=== PATIENT | female | born 1935 | race Caucasian/White ===

== ENCOUNTER 2016-10-29 12:29 | Emergency (ER) | payer MEDICARE ==
[2016-10-29] MEDS ORDERED: IOPAMIDOL 370 (76%) 100 ML VIAL IV ONE (12:30)
[2016-10-29] MEDS ORDERED: ONDANSETRON 4 MG/2ML 2 ML VIAL ONE (13:24)
[2016-10-29] MEDS ORDERED: MORPHINE SULFATE 2 MG/ML SYRINGE ONE ×2 (13:24→15:34)
[2016-10-29] MEDS ORDERED: SODIUM CHLORIDE 0.9% 500 ML ONE (13:24)
[2016-10-29 13:37] LABS: ABSOLUTE NEUTROPHIL COUNT 5.9 K/mm3 (1.8-7.7); BASO % 0.5 % (0.2-1.0); EOS # 0.1 (0.0-0.5); EOS % 1.6 % (0.9-2.9); HEMATOCRIT 38.9 % (37.0-47.0); HEMOGLOBIN 12.7 gm/l (12.0-16.0); IMM NEUT% 0.5 % (0-1); LYMPH # 1.5 (1.0-4.8); LYMPH % 18.1 % (15-45); MEAN CELL VOLUME 95.3 fl (81.0-99.0); MEAN CORPUSCULAR HEMOGLOBIN 31.1 pg (27.0-31.0); MEAN CORPUSCULAR HGB CONC 32.6 g/dl (33.0-37.0); MEAN PLATELET VOLUME 9.6 fl (7.4-10.4); MONO # 0.6 (0.0-0.8); MONO % 7.3 % (4-12); PLATELET COUNT 223 K/mm3 (130-400); RED CELL DISTRIBUTION WIDTH 12.8 % (11.5-14.5)
[2016-10-29 13:46] LABS: CALCIUM 9.2 mg/dL (8.6-10.3)
[2016-10-29] MEDS ORDERED: KETOROLAC TROMETHAMINE 15 MG/ML VIAL ONE (14:17)
--- NOTE | 2016-10-29 14:26 | CT ---
ABD/PELVIS W/ CON COMPARISON: CT abdomen and pelvis without contrast, T1 2016 HISTORY: Right inguinal hernia pain. Technique: No oral contrast. Intravenous injection 80 mL Isovue 370. Using a [employer] Aquilion [address] scanner, images were obtained from the diaphragm to the floor the pelvis. An automated dose reduction technique was used to minimize patient radiation dose. Dose information: CTDIvol (mGy): 8.70 DLP(mGycm): 394.10 FINDINGS: Lung bases: Subpleural pulmonary fibrosis, greater on the right than the left. Inferior mediastinum and heart: Mitral annular calcification, coronary artery disease, and atherosclerosis of the aorta. Liver: Normal. Gallbladder:Normal. Bile ducts: Normal. Pancreas: Moderate atrophy. Spleen: Normal. Adrenal glands: Normal. Kidneys: Normal. Ureters: Normal Urinary bladder: Moderately distended. Uterus and adnexa: Normal. Blood vessels: Extensive atherosclerosis of the aorta and its branches in the abdomen and the pelvis. Lymph nodes: Normal Stomach: Normal Duodenum: Normal Small intestine: Normal Appendix: Removed. Colon: Normal Abdominal wall and supporting musculature: Right to left common femoral artery shunt.. No internal hernia. Bones: Severe decreased mineralization. Mild old compression fractures of the superior endplate of L3 and the superior endplate of L5. IMPRESSION: 1. There is no CT evidence of internal hernia. There is a right to left common femoral artery shunt. 2. The urinary bladder is moderately distended. 3. Severe atherosclerosis of the aorta and its branches in the abdomen and the pelvis. 4. Incidental findings include appendectomy, osteoporosis with old compression fractures of L3 and L5, moderate atrophy of the pancreas, mitral annular calcification and coronary disease, and subpleural pulmonary fibrosis in both lung bases. The report was sent to the emergency department electronic medical record system, 10/29/2016 at 14:28 5. Osteoporosis with old compression fractures of L3 and L5. #6 moderate atrophy of the pancreas. 7.
== END 2016-10-29 16:10 | disposition home or self-care (01) ==
LOC: ED 12:29
DX: S39.012A Strain of muscle, fascia and tendon of lower back, initial encounter (principal); I10 Essential (primary) hypertension; J43.9 Emphysema, unspecified; Z85.118 Personal history of other malignant neoplasm of bronchus and lung; Z87.891 Personal history of nicotine dependence; Y93.89 Activity, other specified
CPT/HCPCS: 85025; 80048; 74177; 96375 ×2; 96376; 99284 ×2; 96374; 96361 ×2; J2270 ×2; J1885; J2405; J7040; Q9967

== ENCOUNTER 2016-11-13 10:16 | Emergency (ER) | payer MEDICARE ==
[2016-11-13] MEDS ORDERED: IOPAMIDOL 370 (76%) 100 ML VIAL IV ONE (10:17)
--- NOTE | 2016-11-13 11:44 | RAD ---
History: Hemoptysis. Comparison: 08/24/2015. Technique: 2 views Findings: 2 views of the chest were performed demonstrating normal-appearing soft tissue and bony structures though there appears to be a posttraumatic deformity of several right posterior lateral ribs. The appearance is stable from the appearance on prior examination. There is blunting the right costophrenic sulcus with suggested scarring within the right pulmonary base laterally. This appearance is also stable. The heart size is appropriate. There are postsurgical changes within the right hilar region suggesting prior lobar resection. The left lung field is clear. The hilar and mediastinal structures are intact. Impression: 1. Post surgical changes within the right hilum with stable suggested scarring within the peripheral right pulmonary base. 2. A chronic deformity of several right posterior lateral ribs. 3. No active intrathoracic process.
[2016-11-13] MEDS ORDERED: LACTATED RINGERS 1,000 ML ONE (13:04)
[2016-11-13 13:21] LABS: ABSOLUTE NEUTROPHIL COUNT 6.3 K/mm3 (1.8-7.7); BASO # 0.1 K/mm3 (0.0-0.2); BASO % 0.8 % (0.2-1.0); EOS # 0.1 (0.0-0.5); EOS % 1.6 % (0.9-2.9); HEMATOCRIT 36.2 % (37.0-47.0); HEMOGLOBIN 11.7 gm/l (12.0-16.0); IMM NEUT% 0.5 % (0-1); LYMPH # 1.7 (1.0-4.8); LYMPH % 18.8 % (15-45); MEAN CORPUSCULAR HEMOGLOBIN 30.4 pg (27.0-31.0); MEAN CORPUSCULAR HGB CONC 32.3 g/dl (33.0-37.0); MEAN PLATELET VOLUME 9.5 fl (7.4-10.4); MONO # 0.6 (0.0-0.8); MONO % 7.1 % (4-12); NEUT % 71.2 % (43-75); PLATELET COUNT 291 K/mm3 (130-400); RED CELL DISTRIBUTION WIDTH 12.8 % (11.5-14.5)
[2016-11-13 13:48] LABS: ALB/GLOB RATIO 1.2 (>1.0); ALBUMIN 3.6 gm/dL (3.5-5.7); CALCIUM 8.9 mg/dL (8.6-10.3)
--- NOTE | 2016-11-13 14:35 | CT ---
CTA CHEST FOR PE History: Hemoptysis. Comparison: 12/10/2014. Procedure: 1 mm axial images were obtained through the chest following the administration of 80cc's of Isovue-370 intravenous contrast. Stacked reconstructed 3 mm images were then photographed in the axial, coronal and sagittal planes. 3-D reconstructed MIP images were also performed on the scanner workstation. Findings: The visualized thyroid gland appears to be appropriate. No suggested enlarged mediastinal or hilar adenopathy is observed. There is atherosclerotic calcification of the aortic arch and great vessel branches. The aortic caliber is appropriate. No pericardial abnormalities are seen. The visualized esophagus appears to be normal. The pulmonary arterial tree is adequately opacified. There are no filling defects identified within the main, primary or secondary pulmonary arterial branches to suggest the presence of a pulmonary embolus. A small amount of debris is suggested within the dependent portion of the trachea. Biapical pulmonary emphysematous changes are present. Subchondral cyst formation is seen within the periphery of both lungs, right greater than left with some associated airspace consolidation seen within the posterior right upper and right lower lobes. A minimal right pleural effusion is suggested. Scans to the upper abdomen demonstrate evidence of a left renal cyst. The T8 compression deformity is identified which appears stable from its appearance on prior examination. Impression: 1. No current findings of a pulmonary embolus visualized. 2. Fibrosis and subpleural cyst formation within both hemithoraces, right greater than left. These findings have progressed since the previous examination. 3. Airspace consolidation within the posterior right upper and right lower lobes which is nonspecific and may reflect asymmetric atelectasis or possibly infectious consolidation. A minimal right pleural effusion is present as well. 4. Atherosclerotic vascular calcification. 5. A left renal cyst. 6. A midthoracic compression deformity stable from its appearance on prior examination. 7. Biapical pulmonary at the symphysis changes.
[2016-11-13] MEDS ORDERED: CEFTRIAXONE 1 GRAM DUPLEX 50 ML IV ONE (15:15)
[2016-11-13] MEDS ORDERED: AZITHROMYCIN 250 MG TABLET ONE (15:15)
== END 2016-11-13 15:57 | disposition home or self-care (01) ==
LOC: ED 10:16
DX: R04.2 Hemoptysis (principal); J44.9 Chronic obstructive pulmonary disease, unspecified; I10 Essential (primary) hypertension; Z87.891 Personal history of nicotine dependence; E11.9 Type 2 diabetes mellitus without complications; Z79.899 Other long term (current) drug therapy; Z88.6 Allergy status to analgesic agent; Z88.8 Allergy status to other drugs, medicaments and biological substances